=== PATIENT | male | born 1975 | race Caucasian/White ===

== ENCOUNTER 2017-03-24 21:28 | Emergency (ER) | payer OTHER ==
[2017-03-24] MEDS ORDERED: CYCLOBENZAPRINE 10 MG TAB PO ONE (21:36)
--- NOTE | 2017-03-24 21:38 | EDPHY ---
H & P Stated Complaint: Neck pain Time Seen by Provider: 03/24/17 21:37 HPI/ROS: HPI: This is a 41-year-old male who presents with Chief Complaint: Neck pain Location: Posterior neck Quality: Pain Duration: 1 hour prior to arrival Signs and Symptoms: No bleeding, + radiation down into left hand, no numbness, no weakness, no tingling, no incontinence, no decreased range of motion Timing: Sudden Severity: Moderate Context: Patient is an employee of [employer]. He was assisting with transfer of a patient. The patient lost her balance and the majority of the patient's weight moved on to him. He strained to stabilizer and prevented the patient from falling. He started to experience posterior cervical pain and radiation into the left arm. He took 2 Advils with mild-to- moderate relief. Modifying Factors: Advil Comment: ROS: Constitutional: No fever, no chills, no weight loss Eyes: No blurred vision Respiratory: No shortness of breath, no cough Cardiovascular: No chest pain Gastrointestinal: No nausea, no vomiting no diarrhea Genitourinary: No dysuria Extremities: No myalgias Neurologic: No weakness, no numbness Skin: No rashes Hematologic: No bruising, no bleeding MEDICAL/SURGICAL/SOCIAL HISTORY: Generally healthy. Source: Patient Exam Limitations: No limitations - Physical Exam Exam: CONSTITUTIONAL: Pleasant adult white male, awake and alert, no obvious distress HEENT: Atraumatic and normocephalic, PERRL, EOMI. Oropharynx clear and moist pink mucosa. Airway patent. No lymphadenopathy. NECK: supple, mild C6 and C7 midline tenderness, no deformity; step-off. flexion 45 degrees, extension 45 degrees, right and left lateral flexion 45 degrees. No meningismus. Cardiovascular: Normal S1/S2, regular rate, regular rhythm, without murmur rub or gallop. PULMONARY/CHEST: Symmetrical and nontender. no crepitus. Clear to auscultation bilaterally. ABDOMEN: Soft, nondistended, nontender. EXTREMITIES: 2/2 pulses, no deformities, no clubbing, no cyanosis or edema. Left shoulder full range of motion. Left elbow full range of motion. NEUROLOGICAL: no focal neuro deficits. GCS 15. Light touch sensation intact. SKIN: Warm and dry, no erythema. no rash. Good capillary refill. Constitutional: Initial Vital Signs Temperature (C) 36.6 C 03/24/17 22:03 Heart Rate 66 03/24/17 22:03 Respiratory Rate 16 03/24/17 22:03 Blood Pressure 134/74 H 03/24/17 22:03 O2 Sat (%) 96 03/24/17 22:03 O2 Delivery Mode Room Air Allergies/Adverse Reactions: No Known Allergies Allergy (Unverified 03/24/17 22:03) Home Medications: Medication Instructions Recorded Cyclobenzaprine [Flexeril 10 MG 10 mg PO TID PRN #15 tab 03/24/17 (*)] Medical Decision Making - Diagnostics Imaging Results: Imaging Impressions Cervical Spine X-Ray 03/24/17 21:36 Impression: 1. No acute osseous abnormality. 2. Mild degenerative changes at C5-C6 and C6-C7. 3. Rim calcified structure in the low neck on the right is indeterminate but may represent vascular calcifications or a lymph node. ED Course/Re-evaluation: Cervical x-ray and p.o. Flexeril ordered No signs of neurovascular compromise/tenting of skin/compartment syndrome/ extremities and joints examined above and below area of concern and are neurovascularly intact. Differential Diagnosis: Differential diagnosis includes but is not limited to cervical paraspinous muscle spasm, cervical sprain, cervical radiculopathy. - Data Points Medications Given: Discontinued Medications Cyclobenzaprine HCl (Flexeril) 10 mg PO EDNOW ONE Stop: 03/24/17 21:37 Last Admin: 03/24/17 22:01 Dose: 10 mg Departure - Departure Disposition: Home, Routine, Self-Care Clinical Impression: Disc disease, degenerative, cervical Cervical muscle strain Qualifiers: Encounter type: initial encounter Qualified Code(s): S16.1XXA - Strain of muscle, fascia and tendon at neck level, initial encounter Condition: Good Instructions: Cervical Strain (ED) Additional Instructions: Take ibuprofen 600-800 mg every 6-8 hours with food as needed for pain and inflammation. Take Flexeril 3 times a day as needed for muscle spasm. Follow up with Neurosurgery in 7-10 days if symptoms worsen or persist. X-rays today show mild degenerate changes at C5-C6 to C6-C7. Referrals: Hesham Underwood MD [Medical Doctor] - Follow Up Only If Needed Prescriptions: Cyclobenzaprine [Flexeril 10 MG (*)] 10 mg PO TID PRN #15 tab PRN Reason: Spasms
[2017-03-24 22:05] VITALS: BP 134/74; PULSE 66; RESP 16; TEMP 97.9; O2SAT 96
== END 2017-03-24 22:41 | disposition home or self-care (01) ==
DX: S16.1XXA Strain of muscle, fascia and tendon at neck level, initial encounter (principal); M50.30 Other cervical disc degeneration, unspecified cervical region; X58.XXXA Exposure to other specified factors, initial encounter; Y99.8 Other external cause status; Y93.89 Activity, other specified

== ENCOUNTER → 2018-05-23 | Outpatient (CLI) | payer OTHER | LOC: CIMAGING 11:32 | PROVIDERS: ATTEND Physical Medicine & Rehabilitation | DX: R07.81 Pleurodynia (principal) | CPT/HCPCS: 71111-PO ==